=== PATIENT | female | born 1950 | race Asian ===

== ENCOUNTER 2019-10-16 11:03 | Emergency (ER) | payer MEDICARE, OTHER ==
[~2019-10-16] VITALS: Ht 157.5 cm; Wt 65.8 kg
[2019-10-16 10:52] VITALS: BP 125/75
[2019-10-16] MEDS ORDERED: HYDROcodone/Acetamin 5/325 tab ORAL ONE (11:45)
[2019-10-16] MEDS ORDERED: NORCO 5-325 TA1 EAC1 ORAL (12:05)
[2019-10-16] MEDS ORDERED: IBUPROFEN600 M1 ORAL (12:05)
--- NOTE | 2019-10-16 12:12 | Emergency Room Report ---
History of Present Illness General Chief Complaint: Upper Extremity Injury Present Illness HPI Disclaimer: Please note that this report is being documented using [employer] technology. This can lead to erroneous entry secondary to incorrect interpretation by the dictating instrument. HPI: 69-year-old female presents from home due to a trip and fall. Presented by EMS. Patient apparently tripped and fell landing on her outstretched left arm. Complaining of left forearm pain 8 out of 10 worse with palpation and movement. No other injuries reported. Patient otherwise has no medical history. Presents with son. PMH: Patient denies any past medical history Allergies: Coded Allergies: No Known Allergies (Unverified , 10/16/19) COVID-19 Screening Contact w/high risk pt: No Experienced COVID-19 symptoms?: No COVID-19 Testing performed LADLE WATCHER: No Patient History Reviewed Nursing Documentation: PMH: Agreed; PSxH: Agreed Review of Systems All Other Systems: negative except mentioned in HPI Physical Exam Vital Signs Date Time Temp Pulse Resp B/P (MAP) Pulse Ox O2 Delivery O2 Flow Rate FiO2 10/16/19 10:47 98.1 50 18 125/75 (92) 95 Room Air Sp02 EP Interpretation: reviewed, normal General Appearance: well appearing, no apparent distress Head: normocephalic, atraumatic Eyes: bilateral eye PERRL, bilateral eye EOMI ENT: hearing grossly normal, moist mucus membranes Neck: full range of motion, supple, other - No midline tenderness Respiratory: lungs clear, normal breath sounds, no rhonchi, no respiratory distress, no retraction, no wheezing Cardiovascular #1: normal peripheral pulses, regular rate, rhythm, no murmur Gastrointestinal: non tender, soft, non-distended, no guarding Musculoskeletal: other - Left Wrist tender to palpation with deformity noted. 2+ pulses, sensation and motor intact distally. Neurologic: alert, oriented x3, no focal defects Skin: normal color, warm/dry Medical Decision Making Diagnostic Impression: Primary Impression: Distal radius fracture, left ER Course Patient presented after trip and fall. Complaining of left forearm pain. X- ray demonstrated comminuted distal radius fracture. Patient neurovascularly intact on exam. Low suspicion for other serious traumatic injury. She denies any head neck or back pain. No chest or abdominal pain. Patient was placed in a splint. Will be discharged with outpatient follow-up and referral to orthopedics via her primary care doctor. She was discharged with pain control. Return precautions were given. Other X-Ray Diagnostic Results Other X-Ray Diagnostic Results : # of Views/Limited Vs Complete: 3 View Indication: Pain Interpretation: other - Comminuted distal radius fracture Electronically Signed by: Rogerio Walker MD Last Vital Signs Date Time Temp Pulse Resp B/P (MAP) Pulse Ox O2 Delivery O2 Flow Rate FiO2 10/16/19 10:52 98.1 51 18 125/75 95 Room Air Disposition: HOME, SELF-CARE Condition: Stable Scripts Hydrocodone Bit/Acetaminophen 5-325* (NORCO 5-325 TABLET*) 1 Each Tablet 1 TAB ORAL Q6H PRN for FOR PAIN, #10 TAB 0 Refills Prov: Rogerio Walker M.D. 10/16/19 Ibuprofen* (MOTRIN*) 600 Mg Tablet 600 MG ORAL Q6H PRN for For Pain, #30 TAB 0 Refills Prov: Rogerio Walker M.D. 10/16/19 Referrals: [facility] Open 24 hour /7 days a week by Appointment Only [address] [facility] [place] [address] [address] Patient Instructions: Forearm Fracture, [id number] Additional Instructions: Patient is instructed to follow-up with her primary care doctor, primary care clinic or [facility] in 1 to 2 days. You will need a referral to orthopedics. Patient instructed to return for any worsening symptoms or concerns. Disclaimer: Please note that this report is being documented using [employer] technology. This can lead to erroneous entry secondary to incorrect interpretation by the dictating instrument. Rogerio Walker M.D. Oct 16, 2019 12:12
[2019-10-16 12:14] VITALS: BP 125/75
--- NOTE | 2019-10-16 13:53 | Diagnostic Imaging Report ---
INDICATION: Wrist and arm pain TECHNIQUE: Multiple views of the left wrist and left forearm were obtained COMPARISON: None FINDINGS: There is an acute, comminuted and moderately impacted distal radial fracture which demonstrates mild dorsal angulation with likely extension to the articular surface. There is diffuse soft tissue swelling around the wrist. There is moderate positive ulnar variance. The ulnar styloid process is separate from the distal ulna, but appears well-corticated and may be secondary to old fracture or developmental in etiology. Elbow joint appears maintained. IMPRESSION: Acute, intra-articular, comminuted and moderately impacted left distal radial fracture with mild dorsal angulation.
== END 2019-10-16 12:15 | disposition home or self-care (01) ==
LOC: EDBD 11:03 → EMR 11:15
DX: S52.502A Unspecified fracture of the lower end of left radius, initial encounter for closed fracture (principal); W01.0XXA Fall on same level from slipping, tripping and stumbling without subsequent striking against object, initial encounter; Y92.009 Unspecified place in unspecified non-institutional (private) residence as the place of occurrence of the external cause
CPT/HCPCS: 99284